=== PATIENT | female | born 1985 | race Caucasian/White ===

== ENCOUNTER → 2020-03-21 09:13 | Outpatient (CLI) | payer OTHER, SELFPAY ==
--- NOTE | ~2020-03-21 | US_ITS ---
EXAMINATION: US OB transvaginal DATE: 03/21/2020 09:48 INDICATION: First trimester dating TECHNIQUE: Real-time pelvic transabdominal and transvaginal ultrasound was performed. COMPARISON: None. FINDINGS: The uterus measures 10.1 x 5.3 x 6.3 cm. There is an intrauterine fluid collection with po ssible small yolk sac. The mean sac diameter measures 1.6 cm , which correlates with an estimated ges tational age of 5 weeks and 6 day(s) (+/-) 4 day(s). No definite pole is identified, likely due to early gestation. The ovaries are not visualized however no adnexal abnormality is seen. There is no free fluid in the pelvis. IMPRESSION: 1. Intrauterine fluid collection, likely gestational sac, without visible pole, likely due to e jerad gestation. Estimated gestational age is 5 weeks and 6 day(s) (+/-) 4 day(s) based on mean sac di ameter with an estimated delivery date of 11/15/2020. Reviewed, dictated and finalized at location A. IMPRESSION: 1. Intrauterine fluid collection, likely gestational sac, without visible pole, likely due to early gestation. Estimated gestational age is 5 weeks and 6 day(s) (+/-) 4 day(s) based on mean sac diameter with an estimated delivery d ate of 11/15/2020.
== END ==
PROVIDERS: Visit Provider Obstetrics & Gynecology
DX: O26.21 Pregnancy care for patient with recurrent pregnancy loss, first trimester (principal); Z3A.01 Less than 8 weeks gestation of pregnancy
CPT/HCPCS: 76817

== ENCOUNTER 2020-10-13 09:56 | Outpatient (RCR) | payer OTHER, SELFPAY ==
[2020-10-03 16:28] VITALS: BP 105/85; PULSE 82
[2020-10-10 15:43] VITALS: BP 122/74; PULSE 70
--- NOTE | ~2020-10-13 | US_ITS ---
EXAMINATION: US OB limited DATE: 10/13/2020 10:40 INDICATION: Amniotic fluid index. Third trimester. TECHNIQUE: Real-time ultrasound of the pelvis was performed. COMPARISON: Ultrasound 03/21/2020 FINDINGS: There is a single fetus in transverse lie with head to the mother's left. The placenta is anterior. heart rate is 132 beats per minute (bpm). The amniotic fluid index is 9.7 cm cm, which is nato l. IMPRESSION: 1. Single living fetus in transverse lie. 2. Normal amniotic fluid index. Reviewed, dictated and finalized at location B. PASSENGER VESSEL
[2020-10-13 11:00] VITALS: BP 121/80; PULSE 87
== END 2020-10-31 07:42 | disposition home or self-care (01) ==
LOC: ANHOBOP 09:56
PROVIDERS: PCP Family Medicine; Visit Provider Obstetrics & Gynecology Gynecology
DX: O24.419 Gestational diabetes mellitus in pregnancy, unspecified control (principal); Z3A.34 34 weeks gestation of pregnancy; O69.89X0 Labor and delivery complicated by other cord complications, not applicable or unspecified; Z3A.35 35 weeks gestation of pregnancy; Z3A.36 36 weeks gestation of pregnancy
CPT/HCPCS: 59025; 76815; 84112

== ENCOUNTER 2020-10-22 09:33 | Outpatient (CLI) | payer OTHER, SELFPAY ==
[2020-10-22 10:16] LABS: Hematocrit 42.8 % (37.0-47.0); Hemoglobin 14.4 g/dL (12.0-15.0); Mean Corpuscular HGB Conc 33.6 g/dl (32-36); Mean Corpuscular Hemoglobin 29.1 pg (26-34); Mean Corpuscular Volume 86.5 fl (80-100); Mean Platelet Volume 12.4 fl (7.4-10.4); Platelet Count Result 183 k/mm3 (150-375); Red Blood Count 4.95 M/mm3 (4.2-5.4); Red Cell Distribution Width 13.4 % (11.5-14.5); White Blood Count 5.5 K/mm3 (4.5-10.0)
[2020-10-22 10:27] LABS: Alanine Aminotransferase 19 U/L (4-35); Albumin Level 3.4 g/dL (3.5-5.1); Alkaline Phosphatase 145 U/L (38-126); Anion Gap 3 mmol/L (8-16); Aspartate Amino Transferase 22 U/L (14-36); Bilirubin,Total 0.5 mg/dL (0.2-1.3); Blood Urea Nitrogen 5 mg/dL (7-17); Calcium 8.9 mg/dL (8.4-10.2); Carbon Dioxide 22 mmol/L (22-30); Chloride 109 mmol/L (98-107); Estimated Glomerular Filt Rate > 60; Glucose 87 mg/dL (65-105); Lactate Dehydrogenase 321 U/L (313-618); Potassium 4.1 mmol/L (3.4-5.0); Sodium 134 mmol/L (137-145); Uric Acid 5.9 mg/dL (2.5-7.5)
[2020-10-22 12:38] LABS: Collection Time Urine 24 HOURS
[2020-10-22 12:39] LABS: Total Volume 24 Hour Urine 900 ml
[2020-10-22 13:08] LABS: Creatinine Urine 137.4 mg/dL; Patient Weight 243 Lbs; Total Protein Urine 24 Hr 81 MG/DAY (28-141); Total Protein Urine Random 9 mg/dL
[2020-10-22 14:21] LABS: Creatinine Clearance Urine 141.9 ml/min (75-125); Serum Creat 0.5
== END 2020-10-22 09:34 | disposition home or self-care (01) ==
PROVIDERS: PCP Family Medicine; Visit Provider Obstetrics & Gynecology
DX: O13.3 Gestational [pregnancy-induced] hypertension without significant proteinuria, third trimester (principal); Z3A.00 Weeks of gestation of pregnancy not specified
CPT/HCPCS: 36415; 80053; 81050; 82570; 82575; 83615; 84156; 84550; 85027

== ENCOUNTER 2020-10-23 10:51 | Outpatient (RCR) | payer OTHER, SELFPAY ==
--- NOTE | ~2020-10-23 | US_ITS ---
US OB limited DATE: 10/23/2020 11:37 INDICATION: Oligohydramnios. Major amniotic fluid index. TECHNIQUE: Real-time imaging and Doppler analysis COMPARISON: 10/13/2020 Limited obstetrical ultrasound examination. Normal amniotic fluid index measure d 9.7 cm FINDINGS: Live mata intrauterine gestation, fetus in vertex presentation, longitudinal lie. Anterior placenta. heart rate of 130 bpm. Amniotic fluid index measures 6.7 cm, below the 5th percentile is 7.5 cm. The largest pocket of amnio tic fluid measures 3.7 x 2.6 cm. IMPRESSION: Oligohydramnios; amniotic fluid index measures 6.7 cm Reviewed, dictated and finalized at Location A. Reviewed, dictated and finalized at location A. TRAINEE
== END 2021-01-21 23:59 | disposition home or self-care (01) ==
LOC: ANHIMG 10:51
PROVIDERS: PCP Family Medicine; Visit Provider Obstetrics & Gynecology
DX: O41.03X0 Oligohydramnios, third trimester, not applicable or unspecified (principal); Z3A.00 Weeks of gestation of pregnancy not specified
CPT/HCPCS: 76815

== ENCOUNTER 2020-10-27 17:15 | Inpatient (IN) | payer OTHER, SELFPAY ==
[2020-10-27] VITALS (8 sets, daily range): BP systolic 102–115; BP diastolic 56–87; PULSE 87–99; TEMP 36.1–36.2
[2020-10-27] MEDS: DINOPROSTONE 10 MG VAG INSERT VAGINAL (17:58)
[2020-10-27 18:02] LABS: Basophils Percent Auto 0.2 % (0.2-1.2); Eosinophils Percent Auto 0.2 % (0-4.4); Hematocrit 45.1 % (37.0-47.0); Immature Granulocyte Absolute 0.03 K/mm3 (0.00-0.031); Immature Granulocyte Percent A 0.4 % (0-0.5); Lymphocytes Absolute Auto 1.43 K/mm3 (0.9-3.2); Lymphocytes Percent Auto 17.5 % (18.3-44.2); Mean Corpuscular HGB Conc 33.3 g/dl (32-36); Mean Corpuscular Hemoglobin 29.1 pg (26-34); Mean Corpuscular Volume 87.6 fl (80-100); Mean Platelet Volume 12.4 fl (7.4-10.4); Monocytes Absolute Auto 0.4 K/mm3 (0.1-0.6); Monocytes Percent Auto 4.7 % (2.6-8.5); Neutrophils Absolute Auto 6.3 K/mm3 (1.3-6.7); Platelet Count Result 200 k/mm3 (150-375); Red Blood Count 5.15 M/mm3 (4.2-5.4); Red Cell Distribution Width 13.6 % (11.5-14.5); White Blood Count 8.2 K/mm3 (4.5-10.0)
--- NOTE | 2020-10-27 18:07 | LDADM ---
This patient, Swathi Bateman, was admitted to Labor/Delivery/Recovery 109 on 10/27/20 at 17:15. Plans for labor, pain management and were discussed with patient. Patient/family oriented to hospital policies and general routines including ID bracelet, bed and alarms, visiting hours, pain management, procedures, bathroom and other care routines, personal items, smoking policy, room service/diet and guest tray routines, infant security routines, and visiting hours. Patient/Family are encouraged to report perceived risks to care and to ask questions if they do not understand what they are told or what they should do. See OBIX for further documentation.
[2020-10-27 18:16] LABS: Alanine Aminotransferase 19 U/L (4-35); Albumin Level 3.8 g/dL (3.5-5.1); Blood Urea Nitrogen 13 mg/dL (7-17); Carbon Dioxide 19 mmol/L (22-30); Chloride 107 mmol/L (98-107); Estimated Glomerular Filt Rate > 60; Glucose 78 mg/dL (65-105); Potassium 3.9 mmol/L (3.4-5.0); Uric Acid 5.3 mg/dL (2.5-7.5)
[2020-10-27 18:45] LABS: Alkaline Phosphatase 168 U/L (38-126); Anion Gap 9 mmol/L (8-16); Aspartate Amino Transferase 26 U/L (14-36); Bilirubin,Total 0.4 mg/dL (0.2-1.3); Calcium 9.6 mg/dL (8.4-10.2); Sodium 135 mmol/L (137-145)
[2020-10-27 21:15] LABS: Glucose Point of Care 66 (65-105)
[2020-10-27] MEDS: INSULIN HUMAN NPH (*BKC) 100 UNITS/ML 6 UNITS SUB-Q (21:47)
[2020-10-28] VITALS (120 sets, daily range): BP systolic 80–138; BP diastolic 44–111; PULSE 59–215; RESP 16–20; TEMP 36.2–36.6; O2SAT 99–100
[2020-10-28 06:10] LABS: Glucose Point of Care 75 (65-105)
[2020-10-28] MEDS: LACTATED RINGERS 1,000 ML 125 ML IV CONT ×2 (07:02→14:53)
[2020-10-28] MEDS: OXYTOCIN 30 UNITS/NS 500 ML 30 UNITS/500 ML BAG IV CONT (07:04)
[2020-10-28 08:50] LABS: Rapid Plasma Reagin Non-Reactive (NonReactive)
[2020-10-28] MEDS: LEVOTHYROXINE SODIUM 150 MCG TABLET PO (09:59)
[2020-10-28 10:10] LABS: Glucose Point of Care 77 (65-105)
--- NOTE | 2020-10-28 11:56 | WPDOBADMIT ---
Obstetrics - Admit Note Admission Note: IOL for induced hypertension. labs normal s/p cervidil. AROM clear fluid cervix /- vertex. record reviewed. No pertinent additions to the history and/or any subsequent changes in the physical findings that are not consistent with the expected course of the were found. Additions to the history and/or subsequent changes in the physical findings follow. None.
--- NOTE | 2020-10-28 12:05 | WPDHPUPDATE1 ---
History and Physical Update Update Date/Time: 10/28/20 12:05 History and Physical has been reviewed, including an updated exam of the patient. There are NO changes in the patient's condition. Risks, benefits, and alternatives have been discussed and questions answered. Patient agrees to proceed with procedure.
--- NOTE | 2020-10-28 12:45 | WPDANESEPP ---
Anes - Eval Pre Procedure Procedure: Labor Epidural Date/Time: 10/28/20 12:45 Surgeon: Aileen Preop Diagnosis: Labor Pain Pre Op Diagnosis: Induction of Labor Patient Data Age: 34 Gender: F Height: Weight: Last Vital Signs Temp 36.4 C 10/28/20 11:55 Pulse 83 10/28/20 12:42 Resp 20 10/28/20 11:55 BP 115/78 10/28/20 12:42 Pulse Ox 100 10/28/20 12:42 Allergies Allergy/AdvReac Type Severity Reaction Status Date / Time No Known Allergies Allergy Verified 10/12/20 15:40 Home Medications Medication Instructions Recorded Confirmed Type ascorbic acid (vitamin C) 500 mg PO DAILY 08/05/19 10/27/20 History levothyroxine 150 mcg PO DAILY 08/05/19 10/27/20 History vit no.[id number] 1 tablet PO DAILY 08/05/19 10/27/20 History [ Vitamin] Vitamin D3 50,000 units PO WEEKLY 10/03/20 10/27/20 History insulin NPH isoph U-100 human 6 unit SUBCUT HS 10/03/20 10/27/20 History [Novolin N NPH U-100 Insulin] Laboratory Tests 10/27/20 10/27/20 10/27/20 17:47 17:47 17:47 WBC 8.2 K/mm3 K/mm3 (4.5-10.0) RBC 5.15 M/mm3 M/mm3 (4.2-5.4) Hgb 15.0 g/dL g/dL (12.0-15.0) Hct 45.1 % % (37.0-47.0) MCV 87.6 fl fl (80-100) MCH 29.1 pg pg (26-34) MCHC 33.3 g/dl g/dl (32-36) RDW 13.6 % % (11.5-14.5) Plt Count 200 k/mm3 k/mm3 (150-375) MPV 12.4 fl H fl (7.4-10.4) Immature Gran % (Auto) 0.4 % % (0-0.5) Neut % (Auto) 77.0 % H % (45.5-73.1) Lymph % (Auto) 17.5 % L % (18.3-44.2) [place] % (Auto) 4.7 % % (2.6-8.5) Eos % (Auto) 0.2 % % (0-4.4) Baso % (Auto) 0.2 % % (0.2-1.2) Lymph # (Auto) 1.43 K/mm3 K/mm3 (0.9-3.2) [place] # (Auto) 0.4 K/mm3 K/mm3 (0.1-0.6) Eos # (Auto) 0.0 K/mm3 K/mm3 (0-0.3) Baso # (Auto) 0.0 K/mm3 K/mm3 (0.0-0.1) Abs Immat Gran (auto) 0.03 K/mm3 K/mm3 (0.00-0.031) Absolute Neuts (auto) 6.3 K/mm3 K/mm3 (1.3-6.7) Absolute Nucleated RBC 0.0 K/mm3 K/mm3 (0.0-0.012) Nucleated RBC % 0.0 % % (0.0-0.2) Sodium 135 mmol/L L mmol/L (137-145) Potassium 3.9 mmol/L mmol/L (3.4-5.0) Chloride 107 mmol/L mmol/L (98-107) Carbon Dioxide 19 mmol/L L mmol/L (22-30) Anion Gap 9 mmol/L mmol/L (8-16) BUN 13 mg/dL D mg/dL (7-17) Creatinine 0.50 mg/dL L mg/dL (0.7-1.0) Estim Creat Clear Calc Not Reportable Estimated GFR > 60 (59 - ) Glucose 78 mg/dL mg/dL (65-105) POC Capillary Glucose Uric Acid 5.3 mg/dL mg/dL (2.5-7.5) Calcium 9.6 mg/dL mg/dL (8.4-10.2) Total Bilirubin 0.4 mg/dL mg/dL (0.2-1.3) AST 26 U/L U/L (14-36) ALT 19 U/L U/L (4-35) Alkaline Phosphatase 168 U/L H U/L (38-126) Total Protein 7.0 g/dL g/dL (6.3-8.2) Albumin 3.8 g/dL g/dL (3.5-5.1) RPR Non-reactive (NonReactive) Blood Type Antibody Screen 10/27/20 10/27/20 10/27/20 17:47 17:47 21:11 WBC RBC Hgb Hct MCV MCH MCHC RDW Plt Count MPV Immature Gran % (Auto) Neut % (Auto) Lymph % (Auto) [place] % (Auto) Eos % (Auto) Baso % (Auto) Lymph # (Auto) [place] # (Auto) Eos # (Auto) Baso # (Auto) Abs Immat Gran (auto) Absolute Neuts (auto) Absolute Nucleated RBC Nucleated RBC % Sodium Cancelled Potassium Cancelled Chloride Cancelled Carbon Dioxide Cancelled Anion Gap Canc
[2020-10-28 13:42] LABS: Glucose Point of Care 78 (65-105)
[2020-10-28] MEDS: ONDANSETRON INJ 4 MG/2 ML VIAL IV PUSH (16:06)
--- NOTE | 2020-10-28 16:49 | PM.OBPRVD ---
OB - Delivery Note Procedure Delivery date: 10/28/20 Procedure: events: Gestational Diabetes, Induced HTN and Labor Induction Induction method: AROM, per pitocin protocol and per cervidil protocol Delivery monitor: external FHT, external uterine and internal uterine Route of delivery: Laceration Description: None Specimen: Yes Quantitative Blood Loss (ml): 100 Anesthesia type: Epidural Disposition: floor Baby Time of : 13:24 Weeks of gestation at delivery: 38 gender: Male Weight (pounds): 6 Weight (ounces): 7 presentation: vertex position: Left Occiput Anterior Placenta delivery description: Spontaneous cord vessel description: 2 Vessels, Nuchal Cord, True Knot (x2), Loose and Clamped/Cut score one minute: 7 score five minutes: 9
[2020-10-28] MEDS: OXYTOCIN 30 UNITS/NS 500 ML 30 UNITS/500 ML BAG 125 UNITS IV CONT (17:04)
--- NOTE | 2020-10-28 19:16 | OBPPTRN ---
Patient transferred to post room #285 via wheelchair. Support person present. Oriented to unit, room, information board, rooming in, admission packet and security measures. Patient verbalizes understanding. with patient.
[2020-10-28] MEDS: IBUPROFEN 600 MG TABLET PO (21:25)
[2020-10-29] MEDS: IBUPROFEN 600 MG TABLET PO (05:13)
[2020-10-29 05:48] LABS: Hematocrit 38.8 % (37.0-47.0)
[2020-10-29] MEDS: LEVOTHYROXINE SODIUM 150 MCG TABLET PO (08:05)
[2020-10-29] MEDS: MULTIVIT/MIN/PREN/FOL AC/IRON TABLET 1 TAB PO (08:05)
[2020-10-29] MEDS: DOCUSATE SODIUM 100 MG CAPSULE PO (08:05)
[2020-10-29 08:10] VITALS: BP 112/74; PULSE 71; RESP 18; TEMP 36.2; O2SAT 97
--- NOTE | 2020-10-29 08:41 | WPDANLDPN2 ---
Anes-Prog Note L&D Date/Time: 10/29/20 08:41 Comfortable throughout: labor Neuraxial method: epidural Epidural/Spinal procedure site: clean & non-tender Neuro status: Neuro function grossly intact. Cardiovascular status: normal Respiratory status: normal Airway patency: baseline Mental status: baseline Post-Op hydration status: normal Vital Signs: Last Vital Signs Temp 36.6 C 10/28/20 19:16 Pulse 96 10/28/20 19:16 Resp 16 10/28/20 19:16 BP 116/72 10/28/20 19:16 Pulse Ox 99 10/28/20 19:16 Pain score (VAS): no complaints I/O: Intake & Output 10/28/20 10/29/20 10/29/20 23:59 07:59 15:59 Intake Total 1300 Output Total 700 Balance 600 Post-procedural complaints: none Patient feedback: Patient satisfied with anesthetic care.
[2020-10-29] MEDS: MEASLES,MUMPS,RUBELLA VACCINE 0.5 ML VIAL SUB-Q (18:51)
[2020-10-31 09:22] VITALS: BP 123/77; PULSE 83; RESP 20; TEMP 36.9; O2SAT 98
--- NOTE | 2020-11-14 11:29 | PM.OBDSVD ---
DS: Admitting Diagnosis Admitting Diagnosis Admitting Diagnosis: labor DS: Discharge Diagnosis Discharge Diagnosis (1) (normal spontaneous vaginal delivery): Code(s): O80 - Encounter for full-term uncomplicated delivery Status: Acute OB - DS: Summary OB Procedures : NST and Ultrasound OB Procedures Intrapartum: Spontaneous Vag Delivery OB Procedures: : None Time Spent with Patient Time attestation: Total time spent providing and/or coordinating discharge services: DS: Data Data Completed and Pending Completed studies during hospitalization: Pending at discharge 10/28/20 16:30 Surgical [PTH] Routine Discharge Plan Discharge Attending physician on discharge: Merrill Gallagher Discharging Clinician: Merrill Gallagher Patient Disposition: Home, Self-Care Activity: may shower Diet: as tolerated Discharge Instructions: Education: Mom and Baby Guide Given to: Mother Follow-Up: Call your delivering provider's office for an appointment to be seen in: 6 Weeks Mom and baby [facility] for the follow-up appointment. Appointment Date/Time:Saturday, October 31, 2020 at 9:00 am What to expect at your follow-up visit: Blood Pressure Check Physical Assessment Call [phone] if you are unable to keep your appointment time. BREAST CARE: * Wear a snug supportive bra. * For engorgement discomfort: Breast Feeding: * Apply warm moist washcloths * Express milk as needed to relieve engorgement * Wear loose clothing * For sore nipples: * Identify correct latch-on * Apply warm moist washcloths before and after nursing * Air dry nipples after nursing * May apply Lansinoh cream to nipples PERINEAL CARE: * Until bleeding stops, use your tatianna bottle after urinating * Change your pad frequently throughout the day * You may take sitz baths several times a day (fill your bathtub with warm water and soak for 20 minutes.) Do NOT bathe in the water * No tub baths until seen by your physician - You may shower ACTIVITY: * Rest as much as possible. * Do not exercise or lift anything heavier than your baby (such as laundry or other children.) * Avoid stairs or driving as much as possible. * Do not put anything into the vagina. No douching, tampons, or sexual activity until seen by physician. NOTIFY PHYSICIAN IF YOU HAVE ANY QUESTIONS OR IF ANY OF THE FOLLOWING SYMPTOMS OCCUR: * If your vaginal area becomes red, swollen, or more painful than what you have experienced in the hospital. * If your vaginal bleeding becomes foul smelling. * If your vaginal bleeding becomes more heavy than a period or if your bleeding changes from pink to bright red. However, you may pass an occasional walnut-sized clot once or twice for the first week . * If you experience a sharp, shooting pain in your calves. * If you discover a hard, reddened area on your breast or if you experience flu-like symptoms. DIET: * Eat regular, well-balanced meals. * Drink plenty of fluids daily. If , drink to thirst. Stand Alone Forms: General Discharge Information Follow-up/Referrals: Merrill Gallagher MD [Physician] - Discharge Medications: Continued ascorbic acid (vitamin C) 500 mg Capsule, Extended Release 500 mg PO DAILY RF: 0 levothyroxine 112 mcg Tablet 150 mcg PO DAILY RF: 0 Vitamin 27 mg iron- 800 mcg Tablet 1 tablet PO DAILY RF: 0 Vitamin D3 50,000 units PO WEEKLY RF: 0 Discontinued Novolin N NPH U-100 Insulin 100 unit/mL Cartridge 6 unit SUBCUT HS RF: 0 Date of admission: 10/27/20 17:15 Primary Care Provider: Jayme,Carlee Admitting Provider: Merrill Gallagher Attending physician on admission: Merrill Gallagher Condition: Stable
== END 2020-10-29 19:42 | disposition home or self-care (01) | DRG 807 ==
LOC: ANHLDR 17:18 → ANHOB2 10-28 19:52
PROVIDERS: Admitting Provider Obstetrics & Gynecology; PCP Family Medicine; Visit Provider Obstetrics & Gynecology
DX: O24.429 Gestational diabetes mellitus in childbirth, unspecified control (principal); Z37.0 Single live birth; O13.4 Gestational [pregnancy-induced] hypertension without significant proteinuria, complicating childbirth; O69.81X0 Labor and delivery complicated by cord around neck, without compression, not applicable or unspecified; Z3A.38 38 weeks gestation of pregnancy
CPT/HCPCS: 36415; 80053; 82948; 84550; 85014; 85018; 85025; 86592; 86850; 86900; 86901; 88307; 90710; A9270; J1815; J2405; J2590; J2795; J7120